=== PATIENT | female | born 1985 | race Caucasian/White ===

== ENCOUNTER 2023-03-03 07:12 | Day surgery (SDC) | payer BC, OTHER ==
[2023-02-24 11:24] VITALS: BMI 31.4
[2023-03-03] MEDS ORDERED: BUPIVACAINE HCL/PF 0.25% (2.5MG/ML) 10 ML VIAL ONE (07:24)
[2023-03-03] MEDS ORDERED: EPINEPHrine 1:1,000 1,000 MCG/ML ML ONE (07:24)
[2023-03-03] MEDS ORDERED: PROPOFOL 40 ML ONE (07:50)
[2023-03-03] MEDS ORDERED: LIDOCAINE HCL/PF 2% SDV 5ML VIAL ONE (07:50)
[2023-03-03] MEDS ORDERED: MIDAZOLAM HCL 2 MG/2 ML SINGLE DOSE VIAL ONE (07:51)
[2023-03-03] MEDS ORDERED: SUCCINYLCHOLINE CHLORIDE 200 MG/10 ML SYRINGE ONE (08:26)
[2023-03-03] MEDS ORDERED: ROCURONIUM BROMIDE 50 MG/5 ML SYRINGE ONE (08:26)
[2023-03-03] MEDS ORDERED: DEXAMETHASONE SOD PHOSPHATE 4 MG/1 ML VIAL ONE (08:29)
[2023-03-03] MEDS ORDERED: ceFAZolin SODIUM 1 GM VIAL ONE (08:29)
[2023-03-03] MEDS ORDERED: ONDANSETRON 4 MG/2 ML VIAL ONE ×2 (10:57→12:12)
[2023-03-03] MEDS ORDERED: KETOROLAC TROMETHAMINE 30 MG/1 ML VIAL ONE (10:57)
[2023-03-03] MEDS ORDERED: BUPIVACAINE HCL/PF 0.25% (2.5MG/ML) 10 ML VIAL IJ ONE (10:58)
[2023-03-03] MEDS ORDERED: ONDANSETRON 4 MG/2 ML VIAL IVPUSH PRN (11:38)
[2023-03-03] MEDS ORDERED: PROMETHAZINE HCL 25 MG/1 ML VIAL IVPB PRN (11:38)
[2023-03-03] MEDS ORDERED: oxyCODONE HCL 5 MG TABLET PO PRN ×2 (11:38)
[2023-03-03] MEDS ORDERED: ACETAMINOPHEN 1000 MG/100 ML BAG IVPB ONE (11:39)
[2023-03-03] MEDS ORDERED: LACTATED RINGERS SOLUTION 1,000 ML IV SCH (11:45)
[2023-03-03] MEDS ORDERED: FENTANYL CITRATE/PF 50 MCG/ML VIAL ONE ×2 (12:12→12:22)
[2023-03-03] MEDS ORDERED: oxyCODONE HCL 5 MG TABLET ONE ×2 (12:53→14:11)
[2023-03-03 13:32] VITALS: RESP 19
[2023-03-03 15:00] VITALS: BP 120/66; PULSE 88
[2023-03-03 15:04] VITALS: TEMP 97
== END 2023-03-03 14:55 | disposition home or self-care (01) ==
LOC: FASU 07:12
PROVIDERS: ATTEND Orthopaedic Surgery Sports Medicine
PROC: 0SQ94ZZ Repair Right Hip Joint, Percutaneous Endoscopic Approach (ICD-10-PCS; principal; 2023-03-03 09:34)
DX: S73.191A Other sprain of right hip, initial encounter (principal); X58.XXXA Exposure to other specified factors, initial encounter; Y93.9 Activity, unspecified; Y92.9 Unspecified place or not applicable
CPT/HCPCS: 73502-TC-RT-FY; 81025; 94760

== ENCOUNTER 2023-07-07 04:25 | Day surgery (SDC) | payer BC, OTHER ==
[2023-06-23 09:38] VITALS: BMI 30.7
[~2023-07-07 04:25] MED LIST: BUPIVACAINE HCL/PF 0.25% (2.5MG/ML) 10 ML VIAL IJ ONE; LIDOCAINE HCL 1% PRESERVATIVE FREE - 30ML VIAL IJ ONE; TRIAMCINOLONE ACETONIDE 40 MG/ML 10 ML VIAL IJ ONE
[2023-07-07] MEDS ORDERED: BUPIVACAINE HCL/PF 0.5% (5MG/ML) 10 ML VIAL ONE (07:14)
[2023-07-07] MEDS ORDERED: TRIAMCINOLONE ACET 40MG/1ML VIAL ONE (07:14)
[2023-07-07] MEDS ORDERED: LIDOCAINE HCL/PF 1% SDV 5ML VIAL ONE (07:14)
[2023-07-07] MEDS ORDERED: BUPIVACAINE HCL/PF 0.25% (2.5MG/ML) 10 ML VIAL ONE (07:14)
[2023-07-07] MEDS ORDERED: ACETAMINOPHEN 500 MG TABLET (FP) PO PRN (10:52)
[2023-07-07] MEDS ORDERED: LIDOCAINE HCL 1% PRESERVATIVE FREE - 30ML VIAL IJ ONE (13:03)
[2023-07-07] MEDS ORDERED: IOHEXOL 180 MG/1 ML ML IJ ONE (13:04)
[2023-07-07] MEDS ORDERED: TRIAMCINOLONE ACETONIDE 40 MG/ML 10 ML VIAL IJ ONE (13:05)
[2023-07-07] MEDS ORDERED: BUPIVACAINE HCL/PF 0.25% (2.5MG/ML) 10 ML VIAL IJ ONE (13:05)
[2023-07-07 14:16] VITALS: BP 132/85; PULSE 75; RESP 20; TEMP 97.2
== END 2023-07-07 13:33 | disposition home or self-care (01) ==
LOC: JASU-SURG 04:25
PROVIDERS: ATTEND Pain Medicine Pain Medicine
PROC: 3E0U3BZ Introduction of Anesthetic Agent into Joints, Percutaneous Approach (ICD-10-PCS; 2023-07-07)
PROC: 3E0U33Z Introduction of Anti-inflammatory into Joints, Percutaneous Approach (ICD-10-PCS; principal; 2023-07-07 12:15)
DX: M25.551 Pain in right hip (principal)
CPT/HCPCS: 76000-TC-FY; 81025